=== PATIENT | female | born 1990 | race Caucasian/White ===

== ENCOUNTER 2022-01-27 17:43 | Inpatient (IN) | payer OTHER, SELFPAY ==
--- NOTE | 2022-01-27 17:09 | PCM.HP.OB ---
HPI - General General Date of Admission: 01/27/22 HPI Narrative MER ALANIZ, is a 31 F who presents at 39 weeks with SROM. Irregular contractions. Maternal Data Information Final ANGEL: [birth year] [facility] Medical History Anxiety Congenital stenosis of pulmonary valve Macrosomia atony of uterus with hemorrhage, delivered hemorrhage (spontaneous vaginal delivery) Third degree laceration of perineum, type 3a Home Medications Lexapro 5 mg PO.IVFORM DAILY anxiety 01/27/22 [History Last Taken Unknown] Prenatabs FA 1 tab PO.IVFORM DAILY 01/27/22 [History Last Taken Unknown] Vitamin D3 25 mg PO.IVFORM DAILY supplementation 01/27/22 [History Last Taken Unknown] benzocaine 20 %-menthol 0.5 % topical aerosol (Dermoplast (with menthol)) 1 spray topical TID PRN PRN perineal discomfort #0 grams 01/30/22 [Rx Last Taken Unknown] dibucaine 1 % topical ointment 1 applic topical TID PRN PRN Discomfort #0 grams 01/30/22 [Rx Last Taken Unknown] naproxen 500 mg tablet 500 mg PO Q8H PRN PRN Pain Score 1-3 #0 tabs 01/30/22 [Rx Last Taken Unknown] sennosides 8.6 mg-docusate sodium 50 mg tablet (Stool Softener-Stimulant Laxative) 1 - 2 tab PO DAILY PRN PRN Constipation #0 tabs 01/30/22 [Rx Last Taken Unknown] Allergy/AdvReac Type Severity Reaction Status Date / Time No Known Allergies Allergy Verified 01/27/22 17:40 Family History (Updated 01/27/22 @ 18:41 by Dorcas Tinoco) Grandfather Diabetes Mother Hypertension Raynauds syndrome Brother Kidney disease Surgical History (Updated 01/27/22 @ 18:38 by Dorcas Tinoco) H/O valvuloplasty History of colposcopy Social History current gender identity: female Smoking Status: Never smoker History 1 Elective abortions Hx Para 0 Spontaneous abortions Hx # Term Pregnancies Ectopic pregnancies Hx # Pregnancies Multiple births # of living children 1 Vital Signs Vital Signs Vital Signs: Weight Weight: 245 lb 4 oz Body Mass Index (BMI) 36.2 Physical Exam Narrative NST 130, moderate, accels, Category 1 Labs Labs Labs: Blood Type O POSITIVE Antibody Screen NEGATIVE Hct 29.4 % (37-47) L Hgb 9.5 g/dL (12.0-15.0) L Rhogam given: No Assessment & Plan (1) 39 weeks gestation of : (2) PROM (premature rupture of membranes): PLAN: Plan 1) Admit to Labor and delivery 2) Routine labs 3) ROM plus positive 4) Reviewed option for active vs expectant management. ok for cytotec for cervical ripening then pitocin per policy 5) Continuous EFM 6) Collaborative physician notified.
[2022-01-27 17:14] VITALS: BMI 36.2
[2022-01-27 17:32] VITALS: BP 121/81; PULSE 82; PULSE 85; TEMP 37.3; O2SAT 94; O2SAT 96
[2022-01-27 17:42] LABS: ROM Internal Control Test YES-OK TO RESULT pt. (Internal QC)
[2022-01-27 17:44] LABS: ROM Patient Test POSITIVE (Negative)
[2022-01-27 18:49] LABS: Absolute Lymphocyte Count 1.65 X10^3/uL (0.83-4.51); Absolute Neutrophil Count 7.2 X10^3/uL (2.0-7.7); Basophil# 0.01 X10^3/uL; Basophil% 0.1 % (0-1); Eosinophil# 0.02 X10^3/uL; Eosinophils% 0.2 % (0-5); Hemoglobin 12.7 g/dL (12.0-15.0); Lymphocyte # 1.65 X10^3/ul (0.83-4.51); Lymphocyte % 17.2 % (19-41); Mean Corp Hgb Conc 34.3 g/dL (32-36); Mean Corpuscular Hgb 30.5 pg (27.0-32.0); Mean Corpuscular Volume 88.9 fL (81-99); Mean Platelet Vol. 10.6 fl (6.2-12.0); Monocyte# 0.68 X10^3/uL; Monocyte% 7.1 % (0-10); NRBC Flagged by Analyzer 0 % (0-5); Neutrophil # 7.21 X10^3/uL (2.7-7.7); Neutrophil % 75.1 % (47-70); Platelet Count 189 K/mm3 (150-450); RBC Distribution Width CV 13.2 % (11.6-14.6); RBC Distribution Width SD 42.9 fl (35.1-43.9); Red Blood Count 4.16 M/mm3 (4.2-5.4); White Blood Count 9.6 K/mm3 (4.4-11.0)
[2022-01-27] MEDS: miSOPROStol 25 MCG TABLET PO (20:07)
[2022-01-27 20:08] VITALS: BP 121/70; PULSE 76; TEMP 37.2
[2022-01-27 23:11] VITALS: TEMP 36.9
[2022-01-28] VITALS (80 sets, daily range): BP systolic 89–209; BP diastolic 54–162; PULSE 65–104; TEMP 35.6–37.7; O2SAT 93–99
[2022-01-28] MEDS: miSOPROStol 25 MCG TABLET PO (00:16)
[2022-01-28] MEDS: Acetaminophen 500 MG Tablet PO (00:19)
[2022-01-28] MEDS: Mag Hydrox/Al Hydrox/Simeth 30 ML UDC PO (01:34)
[2022-01-28] MEDS: Lactated Ringers 1,000 ML 50 ML IV (04:31)
[2022-01-28] MEDS: fentaNYL 100 MCG/2 ML Ampul IV (05:00)
[2022-01-28] MEDS: LACTATED RINGERS 500 ML 999 ML IV ×2 (05:33→06:42)
[2022-01-28] MEDS: fentaNYL-bupivacaine (epidural) 100 ML BAG EPIDURAL ×3 (06:36→16:23)
[2022-01-28] MEDS: Oxytocin 30 units/NS 500 ml 30 UNITS/500 ML IV.SOLN IV (06:56)
--- NOTE | 2022-01-28 07:41 | PCM.PN.OB ---
Subjective Subjective Patient seen at bedside. Comfortable with epidural. Objective Data Objective Data Vital Signs: Vital Signs Temp Pulse BP Pulse Ox 97.9 F 83 116/70 96 01/28/22 07:20 01/28/22 07:39 01/28/22 07:39 01/28/22 06:25 Weight: 245 lb 4 oz Body Mass Index (BMI) 36.2 Intake & Output: Intake and Output for Last 24 Hours 01/26/22 01/27/22 01/28/22 23:59 23:59 23:59 Intake Total 500 / 500 Output Total 400 / 400 Balance 100 / 100 Lab / Micro Data Result Diagrams: 01/27/22 18:35 Labs: Laboratory Results - last 24 hr 01/27/22 17:20: Vag Amniotic Fld Detect POSITIVE H 01/27/22 18:35: WBC 9.6, RBC 4.16 L, Hgb 12.7, Hct 37.0, MCV 88.9, MCH 30.5, MCHC 34.3, RDW Std Deviation 42.9, RDW Coeff of Tarun 13.2, Plt Count 189, MPV 10.6, Immature Gran % (Auto) 0.300, Neut % (Auto) 75.1 H, Lymph % (Auto) 17.2 L, [place] % (Auto) 7.1, Eos % (Auto) 0.2, Baso % (Auto) 0.1, Absolute Neuts (auto) 7.2, Absolute Lymphs (auto) 1.65, Nucleated RBC % 0 01/27/22 18:35: Blood Type O POSITIVE, Antibody Screen NEGATIVE Micro: Microbiology 01/27/22 18:35 Nasal Secretion SARS-CoV-2 Antigen (Rapid) - Final ROS Eyes Eyes: Denies blurry vision Cardiovascular Cardiovascular: Reports none; Denies chest pain at rest, chest pain with activity or dizziness Respiratory/Chest Respiratory/Chest: Denies cough or dyspnea Gastrointestinal Gastrointestinal: Reports none and other; Denies diarrhea or vomiting Genitourinary Genitourinary: Denies dysuria Musculoskeletal Musculoskeletal: Reports none Integumentary Integumentary: Reports none; Denies rash Neurologic Neurologic: Denies dizziness, headache(s) or other visual disturbances Psychiatric Psychiatric: Reports none Physical Exam Const alert and no apparent distress General Appearance: cooperative and comfortable Exam Limitations: no limitations HEENT normocephalic Eyes General Eye: normal appearance of both eyes Neck full ROM General: normal visual inspection Chest Chest: symmetrical chest wall rise Resp normal respiratory effort and normal air movement Effort and Inspection: symmetric chest movement Auscultation: clear to auscultation bilaterally Cardio regular rate and regular rhythm GI normal to inspection, nondistended, normoactive bowel sounds Back/Spine normal ROM Extremity full ROM and no calf tenderness General Extremity: normal exam except as noted Skin no rashes or lesions noted Neuro CN's II-XII intact bilaterally Psych mental status grossly normal Assessment & Plan (1) PROM (premature rupture of membranes): (2) 39 weeks gestation of : (3) Congenital stenosis of pulmonary valve: (4) Anxiety: (5) Macrosomia: PLAN: Plan Continue with plan of care for labor Pitocin at 2 mu/min and will continue to be increased per policy Pain control CE /-3 IUPC placed for accuracy with titration of pitocin Cat. 1 tracing- NST reactive Anticipate Dr. Verde updated and is collaborating physician
[2022-01-28] MEDS: Lactated Ringers 1,000 ML 200 ML IV (11:41)
[2022-01-28] MEDS: Ondansetron 4 MG/2 ML Vial IV (11:50)
[2022-01-28] MEDS: Oxytocin 30 units/NS 500 ml 30 UNITS/500 ML IV.SOLN 334 UNITS IV (17:40)
[2022-01-28] MEDS: Methylergonovine 0.2 MG/ML Ampul IM (17:46)
[2022-01-28] MEDS: miSOPROStol 200 MCG Tablet 1000 MCG RC (17:52)
--- NOTE | 2022-01-28 18:20 | OP.PCM_ITS ---
Assessment & Plan (1) (spontaneous vaginal delivery): (2) Congenital stenosis of pulmonary valve: (3) Third degree laceration of perineum, type 3a: (4) atony of uterus with hemorrhage, delivered: Vaginal Delivery Maternal Presentation Maternal Presentation: Spontaneous Rupture of Membranes Maternal Presentation: at 39.0 weeks gestation that presented with spontaneous rupture of membranes. Type of Induction: Pitocin and Cytotec Operative Information Pre-Operative Diagnosis: Term gestation, Spontaneous rupture of membranes Post-Operative Diagnosis: , Live male Surgery / Procedure Performed: Spontaneous Vaginal Delivery Type of Anesthesia: Epidural Drain: Ayala to straight drain Estimated Blood Loss: 900 Time of Delivery: 17:38 Findings Description of Procedure: Patient progressed to complete dilation. Provided bedside support to patient with pushing. Patient pushing well with contractions. Cardiovascular Specialist and nursery RN called to room for delivery. Dr. Verde called for delivery for suspected macrosomia. With minimal maternal effort, infant head delivered followed immediately by anterior shoulder, and remainder of . CAN x1 loose and CAB x 1 loose. Vigorous male placed on maternal abdomen and was attended to by nursing staff. Pitocin IV started for active management of the third stage of labor. Placenta delivered spontaneously and intact. Cord blood collected from 3 vessel cord after delayed cord clamping and cutting. placed immediately skin to skin with patient. Uterus boggy with massage. Dr. Verde completed uterine massage with manual support. Moderate amount of bleeding with expression of clots. Methergine IM x1 dose given. Pitocin IV wide open. Uterus remained boggy. Cytotec 1000 mcg LA placed. Uterus began to firm up and no further clots being expressed. After inspection a third degree laceration was discovered and repaired by Dr. Verde. See additional operative note. EBL 900 cc. APGARS 8/9. Will collect repeat CBC in AM. Patient and bonding well at this time. Presentation: Vertex Amniotic Membrane Rupture Type: Spontaneous Time of Membrane Rupture: 1600 Amniotic Fluid Description: Clear Placental Delivery Description: Spontaneous Placenta Disposition: [facility] Cord Vessel Description: 3 Vessels Cord Entanglement: Around neck x 1, loose and - (cord around body x1 loose) Nuchal Cord Compression: Without compression A Gender: Female (1 minute): 8 (5 minute): 9 Delayed Cord Clamping: Yes Post Vaginal Delivery Medications Given After Delivery: IV Pitocin, IM Methergin and - (Cytotec 1000 mcg LA) Episiotomy Description: None Laceration: 3rd degree Complication Complications: None
--- NOTE | 2022-01-28 18:21 | OP.PCM_ITS ---
Operative Report Date of Procedure: 01/28/22 I was present in the room for the delivery of the infant. Infant delivered by Mackenzie Mesa CNM. I then manually explored the uterus which was boggy. Pitocin was started, manual uterine massage was started, and Methergine was given. The uterus then began to firm. Cytotec was placed rectally. The uterus was firm and bleeding hemostatic. EBL 900 cc. The laceration was examined and a rectal exam was performed, and a third degree perineal laceration was noted. A 3a perineal laceration was noted with the external anal sphincter partially torn. The external anal sphincter was reinforced using 3-0 Vicryl in an end to end fashion, with 4 interrupted sutures. The vaginal mucosa and perineal muscles were then reapproximated using 3-0 Vicryl. A rectal exam was performed at completed and no sutures were noted, with good sphincter tone. Discussed 3rd degree perineal laceration with patient and importance of a good bowel regimen to keep stool soft. Will refer to uro travertine installer and pelvic floor PT.
[2022-01-28] MEDS: Naproxen 500 MG Tablet PO (19:38)
[2022-01-28] MEDS: Benzocaine/Lanolin/Aloe Vera 1 SPRAY EACH TOPICAL (19:38)
--- NOTE | 2022-01-28 20:58 | NURSING ---
Sitz bath given
[2022-01-29] VITALS (7 sets, daily range): BP systolic 105–124; BP diastolic 53–70; PULSE 65–85; RESP 16–18; TEMP 36.1–36.7; O2SAT 95–97
[2022-01-29] MEDS: Acetaminophen 500 MG Tablet 1000 MG PO ×4 (00:31→22:40)
[2022-01-29] MEDS: Naproxen 500 MG Tablet PO ×3 (04:23→20:45)
[2022-01-29 07:03] LABS: Hematocrit 30.8 % (37-47); Hemoglobin 10.2 g/dL (12.0-15.0); Mean Corp Hgb Conc 33.1 g/dL (32-36); Mean Corpuscular Hgb 30.1 pg (27.0-32.0); Mean Corpuscular Volume 90.9 fL (81-99); Mean Platelet Vol. 10.2 fl (6.2-12.0); Platelet Count 150 K/mm3 (150-450); RBC Distribution Width CV 13.6 % (11.6-14.6); RBC Distribution Width SD 44.9 fl (35.1-43.9); Red Blood Count 3.39 M/mm3 (4.2-5.4); White Blood Count 13.3 K/mm3 (4.4-11.0)
[2022-01-29] MEDS: Prenatal Vits Tablet 1 TABLET PO (10:42)
[2022-01-29] MEDS: Senna/Docusate Sodium 1 Tablet PO (10:42)
[2022-01-29] MEDS: Escitalopram Oxalate 10 MG Tablet 5 MG PO (10:42)
[2022-01-29] MEDS: Cholecalciferol (VIT D3) 25 MCG TABLET (1,000 UNITS) PO (10:43)
--- NOTE | 2022-01-29 13:05 | PCM.PN.OB ---
Subjective Subjective Moderate pain in the perineal area. Average lochia. Overall patient states she is feeling well. Objective Data Objective Data Vital Signs: Vital Signs Temp Pulse Resp BP Pulse Ox O2 Del Method 97.3 F L 71 18 114/70 95 Room Air 01/29/22 11:39 01/29/22 11:39 01/29/22 11:39 01/29/22 11:39 01/29/22 11:39 01/29/22 11:39 Oxygen Delivery Method Room Air Weight: 111.244 kg Body Mass Index (BMI) 36.2 Intake & Output: Intake and Output for Last 24 Hours 01/27/22 01/28/22 01/29/22 23:59 23:59 23:59 Intake Total 4512.63 / 4512.63 Output Total 2775 / 2775 1500 / 1500 Balance 1737.63 / 1737.63 -1500 / -1500 Lab / Micro Data Result Diagrams: 01/29/22 06:40 Labs: Laboratory Results - last 24 hr 01/29/22 06:40: WBC 13.3 H, RBC 3.39 L, Hgb 10.2 L, Hct 30.8 L, MCV 90.9, MCH 30.1, MCHC 33.1, RDW Std Deviation 44.9 H, RDW Coeff of Tarun 13.6, Plt Count 150, MPV 10.2 Micro: Microbiology 01/27/22 18:35 Nasal Secretion SARS-CoV-2 Antigen (Rapid) - Final Physical Exam Const alert and no apparent distress Narrative: Fundus firm, below umbilicus. Assessment & Plan (1) Third degree laceration of perineum, type 3a: PLAN: Reviewed perineal care for third-degree laceration. (2) hemorrhage: PLAN: Hemoglobin is stable. Patient's vitals are stable. Recheck CBC in the a.m. PLAN: Plan is breast-feeding and doing well. Likely discharge home patient and tomorrow.
[2022-01-30 02:40] VITALS: BP 112/69; PULSE 70; RESP 18; TEMP 36.6; O2SAT 96
[2022-01-30] MEDS: Naproxen 500 MG Tablet PO ×2 (04:53→13:17)
[2022-01-30] MEDS: Acetaminophen 500 MG Tablet 1000 MG PO (04:53)
[2022-01-30 05:36] LABS: Hematocrit 29.4 % (37-47); Hemoglobin 9.5 g/dL (12.0-15.0); Mean Corp Hgb Conc 32.3 g/dL (32-36); Mean Corpuscular Hgb 30.1 pg (27.0-32.0); Platelet Count 163 K/mm3 (150-450); RBC Distribution Width CV 13.9 % (11.6-14.6); RBC Distribution Width SD 47.1 fl (35.1-43.9); Red Blood Count 3.16 M/mm3 (4.2-5.4); White Blood Count 9.9 K/mm3 (4.4-11.0)
--- NOTE | 2022-01-30 07:35 | NURSING ---
report given to Surendra Hopkins RN who is assuming care of pt at this time
--- NOTE | 2022-01-30 07:44 | NURSING ---
pt reports using sitz bath after RN educated pt on use prior to 0600 round
[2022-01-30 08:09] VITALS: BP 124/78; PULSE 76; RESP 16; TEMP 36.2; O2SAT 97
[2022-01-30] MEDS: Benzocaine/Lanolin/Aloe Vera 1 SPRAY EACH TOPICAL (08:14)
--- NOTE | 2022-01-30 08:18 | PN.OBGYN_ITS ---
Subjective Subjective Patient seen at bedside. Sleeping sound. Ambulating and voiding without difficulty. Had bowel movement yesterday. Pain controlled at this time. Using sitz bath for perineum. with support. Denies headache, dizziness, SOB or CP. Desires discharge home later today. Objective Data Objective Data Vital Signs: Vital Signs Temp Pulse Resp BP Pulse Ox O2 Del Method 97.1 F L 76 16 124/78 H 97 Room Air 01/30/22 08:09 01/30/22 08:09 01/30/22 08:09 01/30/22 08:09 01/30/22 08:09 01/30/22 08:09 Oxygen Delivery Method Room Air Weight: 245 lb 4 oz Body Mass Index (BMI) 36.2 Intake & Output: Intake and Output for Last 24 Hours 01/28/22 01/29/22 01/30/22 23:59 23:59 23:59 Intake Total 4512.63 / 4512.63 Output Total 2775 / 2775 1500 / 1500 Balance 1737.63 / 1737.63 -1500 / -1500 Lab / Micro Data Result Diagrams: 01/30/22 05:15 Labs: Laboratory Results - last 24 hr 01/30/22 05:15: WBC 9.9, RBC 3.16 L, Hgb 9.5 L, Hct 29.4 L, MCV 93.0, MCH 30.1, MCHC 32.3, RDW Std Deviation 47.1 H, RDW Coeff of Tarun 13.9, Plt Count 163, MPV 10.0 Micro: Microbiology 01/27/22 18:35 Nasal Secretion SARS-CoV-2 Antigen (Rapid) - Final ROS Eyes Eyes: Denies blurry vision, change in vision or spots in vision ENT HEENT: Denies dizziness or headache(s) Cardiovascular Cardiovascular: Denies abdominal pain, chest pain or dyspnea Respiratory/Chest Respiratory/Chest: Denies cough, dyspnea, shortness of breath at rest or shortness of breath with exertion Gastrointestinal Gastrointestinal: Denies abdominal pain, diarrhea or vomiting Genitourinary Genitourinary: Denies change in urinary stream, difficulty urinating or dysuria Musculoskeletal Musculoskeletal: Reports none Integumentary Integumentary: Denies rash Neurologic Neurologic: Denies dizziness, headache(s), memory loss or weakness Physical Exam Const alert and no apparent distress General Appearance: cooperative and comfortable Exam Limitations: no limitations HEENT normocephalic Eyes General Eye: normal appearance of both eyes Neck full ROM General: normal visual inspection Chest Chest: symmetrical chest wall rise Resp normal respiratory effort and normal air movement Effort and Inspection: symmetric chest movement Auscultation: clear to auscultation bilaterally Cardio regular rate and regular rhythm GI normal to inspection, nondistended, normoactive bowel sounds Back/Spine normal ROM Extremity full ROM and no calf tenderness General Extremity: normal exam except as noted Skin no rashes or lesions noted Neuro CN's II-XII intact bilaterally Psych mental status grossly normal Assessment & Plan (1) atony of uterus with hemorrhage, delivered: (2) Third degree laceration of perineum, type 3a: (3) (spontaneous vaginal delivery): PLAN: Plan PPD 2 Oral Iron supplementation Sitz bath daily Pain control support D/C home with follow up in office- referral placed to pelvic floor therapy [facility] f or 3rd degree laceration
--- NOTE | 2022-01-30 08:23 | DCINST_ITS ---
Discharge Instructions Diet Discharge Diet: No restrictions Activity Discharge Activity: Return to Normal Activity, May Shower and May Take a Tub Bath May resume sexual activity in: 6-8 weeks Weight Bearing Status: Weight bearing as tolerated Dressing / Incision Call your doctor if you observe: Fever of 101 or Higher, Inability to urinate, Inability to have a bowel movement, Using more than 1 pad per hour, Shortness of breath, Dizziness, Chest pain, Calf discomfort and Uncontrolled pain Cleanse incision/area with: - (Sitz bath daily with warm water) Follow Up Care Please Follow Up With: Malina Verde DO When: 2 weeks in office Test Results: Test results from this visit will be discussed in further detail at your follow- up appointment, if applicable. Discharge Plan Admission Admit Date/Time: 01/27/22 17:43 Primary Reason for Your Visit: Labor and delivery Attending Provider: Mackenzie Mesa Primary Care Provider: Care Physician,Radah Primary Discharge Orders/Prescriptions Prescriptions: New Dermoplast (with menthol) 20-0.5 % Aerosol 1 spray topical TID PRN PRN (Reason: perineal discomfort) Qty: 0 0RF Protocol: *Topical Application Instructions APPLICATION INSTRUCTIONS: 1 spray 3 times a day as needed for perineal discomfort sennosides-docusate sodium [Stool Softener-Stimulant Laxat] 8.6-50 mg Tablet 1 - 2 tab PO DAILY PRN PRN (Reason: Constipation ) Qty: 0 0RF dibucaine 1 % Ointment 1 applic topical TID PRN PRN (Reason: Discomfort) Qty: 0 0RF Protocol: *Topical Application Instructions APPLICATION INSTRUCTIONS: To perineum for discomfort naproxen 500 mg Tablet 500 mg PO Q8H PRN PRN (Reason: Pain Score 1-3) Qty: 0 0RF Continued Lexapro 5 mg PO.IVFORM DAILY Prenatabs FA 1 tab PO.IVFORM DAILY Vitamin D3 25 mg PO.IVFORM DAILY Referrals / Follow Up: Care Physician,No Primary [Primary Care Provider] - Disposition Disposition (needs filled in before D/C Order can be placed): Home, Self Care
[2022-01-30] MEDS: Escitalopram Oxalate 10 MG Tablet 5 MG PO (09:35)
[2022-01-30] MEDS: Cholecalciferol (VIT D3) 25 MCG TABLET (1,000 UNITS) PO (09:35)
[2022-01-30] MEDS: Prenatal Vits Tablet 1 TABLET PO (09:35)
[2022-01-30 13:00] VITALS: BP 121/71; PULSE 81; RESP 16; TEMP 36.6; O2SAT 95
[2022-01-30] MEDS: Senna/Docusate Sodium 1 Tablet PO (13:17)
== END 2022-01-30 14:20 | disposition home or self-care (01) | DRG 768 ==
LOC: WPOUT 17:46 → WP 17:46
PROVIDERS: Obstetrics & Gynecology; Admitting Provider Advanced Practice Midwife; Visit Provider Advanced Practice Midwife
DX: O42.92 Full-term premature rupture of membranes, unspecified as to length of time between rupture and onset of labor (principal); Z37.0 Single live birth; O72.1 Other immediate postpartum hemorrhage; O70.21 Third degree perineal laceration during delivery, IIIa; F41.9 Anxiety disorder, unspecified; Z3A.39 39 weeks gestation of pregnancy; O99.344 Other mental disorders complicating childbirth; Z87.74 Personal history of (corrected) congenital malformations of heart and circulatory system; Z79.899 Other long term (current) drug therapy; O69.81X0 Labor and delivery complicated by cord around neck, without compression, not applicable or unspecified
CPT/HCPCS: 59025; 59050; 84112; 85025; 85027; 86850; 86900; 86901; 87426; 99218; J7120; G0378; J2405

== ENCOUNTER 2023-11-16 06:21 | Inpatient (IN) | payer OTHER, SELFPAY ==
[2023-11-16] VITALS (83 sets, daily range): BP systolic 101–134; BP diastolic 57–85; PULSE 59–93; RESP 16; TEMP 36.2–36.9; O2SAT 84–100; BMI 34.4
[2023-11-16 06:14] LABS: ROM Internal Control Test YES-OK TO RESULT pt. (Internal QC); Record Kit Lot#, ROM+ K1866
[2023-11-16 06:17] LABS: ROM Patient Test POSITIVE (Negative)
[2023-11-16] MEDS: Lactated Ringers 1,000 ML 999 ML IV (07:00)
[2023-11-16 07:18] LABS: Absolute Lymphocyte Count 1.88 X10^3/uL (0.83-4.51); Absolute Neutrophil Count 5.7 X10^3/uL (2.0-7.7); Basophil# 0.01 X10^3/uL; Basophil% 0.1 % (0-1); Eosinophil# 0.03 X10^3/uL; Eosinophils% 0.4 % (0-5); Hematocrit 34.3 % (37-47); Hemoglobin 11.1 g/dL (12.0-15.0); Lymphocyte # 1.88 X10^3/ul (0.83-4.51); Lymphocyte % 23.3 % (19-41); Mean Corp Hgb Conc 32.4 g/dL (32-36); Mean Corpuscular Hgb 27.8 pg (27.0-32.0); Mean Corpuscular Volume 85.8 fL (81-99); Mean Platelet Vol. 10.1 fl (6.2-12.0); Monocyte# 0.45 X10^3/uL; Monocyte% 5.6 % (0-10); NRBC Flagged by Analyzer 0 % (0-5); Neutrophil # 5.68 X10^3/uL (2.7-7.7); Neutrophil % 70.2 % (47-70); Platelet Count 197 K/mm3 (150-450); RBC Distribution Width CV 13.7 % (11.6-14.6); RBC Distribution Width SD 42.7 fl (35.1-43.9); White Blood Count 8.1 K/mm3 (4.4-11.0)
[2023-11-16] MEDS: Mag Hydrox/Al Hydrox/Simeth 30 ML UDC PO (07:26)
[2023-11-16] MEDS: fentaNYL 100 MCG/2 ML Ampul IV (07:51)
[2023-11-16] MEDS: 0.9% Saline Lock 10 ML Syringe IV ×2 (07:52→14:12)
[2023-11-16] MEDS: Lactated Ringers 1,000 ML 50 ML IV (08:11)
[2023-11-16] MEDS: LACTATED RINGERS 500 ML 999 ML IV ×2 (08:33→14:29)
[2023-11-16] MEDS: fentaNYL-bupivacaine (epidural) 100 ML BAG EPIDURAL ×2 (08:52→13:30)
[2023-11-16] MEDS: Oxytocin 15 Units/NS 250ml 15 UNITS/250 ML IV.SOLN 2 UNITS IV (09:07)
[2023-11-16 09:10] LABS: Syphilis Antibodies Non-reactive
--- NOTE | 2023-11-16 09:24 | PCM.HP.OB ---
HPI - General General Date of Admission: 11/16/23 HPI Narrative MER ALANIZ, is a 33 F who presents to triage with SROM this morning. Patient reports clear fluid and has started feeling contractions. Desires epidural. Maternal Data Information ANGEL Calculator Estimated Delivery Date Method Current WG Current Estimate 11/22/23 Manual 39w 1d Gestational age: 39.1 PFSH PFSH Medical History (Updated 11/16/23 @ 09:35 by Mackenzie Mesa CNM) atony of uterus with hemorrhage, delivered Anxiety Congenital stenosis of pulmonary valve Macrosomia depression Third degree laceration of perineum, type 3a hemorrhage (spontaneous vaginal delivery) Home Medications ?Medication ?Instructions ?Recorded ?Last Taken ?Type Lexapro 5 mg PO.IVFORM DAILY anxiety 01/27/22 11/15/23 23:00 History Prenatabs FA 1 tab PO.IVFORM DAILY 01/27/22 11/15/23 23:00 History Vitamin D3 25 mg PO.IVFORM DAILY 01/27/22 11/15/23 23:00 History supplementation benzocaine 20 %-menthol 0.5 % 1 spray topical TID PRN PRN 01/30/22 Unknown Rx topical aerosol (Dermoplast (with perineal discomfort #0 grams menthol)) dibucaine 1 % topical ointment 1 applic topical TID PRN PRN 01/30/22 Unknown Rx Discomfort #0 grams naproxen 500 mg tablet 500 mg PO Q8H PRN PRN Pain Score 01/30/22 Unknown Rx 1-3 #0 tabs sennosides 8.6 mg-docusate sodium 1 - 2 tab PO DAILY PRN PRN 01/30/22 Unknown Rx 50 mg tablet (Stool Constipation #0 tabs Softener-Stimulant Laxative) magnesium 200 mg tablet 400 mg PO DAILY 11/16/23 Unknown History Allergy/AdvReac Type Severity Reaction Status Date / Time No Known Allergies Allergy Verified 11/16/23 05:28 Family History (Updated 01/27/22 @ 18:41 by Dorcas Tinoco) Grandfather Diabetes Mother Hypertension Raynauds syndrome Brother Kidney disease Surgical History (Updated 11/16/23 @ 09:35 by Mackenzie Mesa CNM) History of colposcopy H/O valvuloplasty Social History Smoking Status: Never smoker History 1 Elective abortions Hx Para 1 Spontaneous abortions Hx # Term Pregnancies Ectopic pregnancies Hx # Pregnancies Multiple births # of living children 1 ROS Eyes Eyes: Denies blurry vision, change in vision or spots in vision ENT HEENT: Denies dizziness or headache(s) Cardiovascular Cardiovascular: Denies abdominal pain, chest pain or dyspnea Respiratory/Chest Respiratory/Chest: Denies cough, dyspnea, shortness of breath at rest or shortness of breath with exertion Gastrointestinal Gastrointestinal: Denies abdominal pain, diarrhea or vomiting Genitourinary Genitourinary: Denies change in urinary stream, difficulty urinating or dysuria Musculoskeletal Musculoskeletal: Reports none Integumentary Integumentary: Denies rash Neurologic Neurologic: Denies dizziness, headache(s), memory loss or weakness Vital Signs Vital Signs Vital Signs: 11/16/23 06:12 11/16/23 06:12 11/16/23 06:12 Temperature Temperature Source Pulse Rate 64 Respiratory Rate Blood Pressure 120/67 BP Systolic 120 BP Diastolic 67 Pulse Ox 96 11/16/23 06:14 11/16/23 06:14 11/16/23 06:14 Temperature 97.6 F L Temperature Source Temporal Pulse Rate Respiratory Rate 16 Blood Pressure BP Systolic BP Diastolic Pulse Ox 11/16/23 07:23 11/16/23 07:23 11/16/23 07:23 Temperature Temperature Source Pulse Rate 63 Respiratory Rate Blood Pressure 124/78 H BP Systolic 124 BP Diastolic 78 Pulse Ox 95 11/16/23 07:23 11/16/23 07:23 11/16/23 07:23 Temperature 98.4 F Temperature Source Temporal Pulse Rate Respiratory Rate 16 Blood Pressure BP Systolic BP Diastolic Pulse Ox 11/16/23 08:33 11/16/23 08:33 11/16/23 08:38 Temperature Temperature Source Pulse Rate 78 76 Respiratory Rate Blood Pressure BP Systolic BP Diastolic Pulse Ox 98 11/16/23 08:38 11/16/23 08:43 11/16/23 08:43 Temperature Temperature Source Pulse Rate 75 Respiratory Rate Blood Pressure 120/76 BP Systolic 120 BP Diastolic 76 Pulse Ox 98 11/16/23 08:43 11/16/23 08:43 11/16/23 08:43 Temperature Temperature Source Pulse Rate 73 Respiratory Rate 16 Blood Pressure BP Systolic BP Diastolic Pulse Ox 98 11/16/23 08:48 11/16/23 08:48 11/16/23 08:48 Temperature Temperature Source Pulse Rate 93 Respiratory Rate Blood Pressure 115/69 BP Systolic 115 BP Diastolic 69 Pulse Ox 97 11/16/23 08:49 11/16/23 08:52 11/16/23 08:52 Temperature Temperature Source Pulse Rate 72 Respiratory Rate 16 Blood Pressure 134/72 H BP Systolic 134 BP Diastolic 72 Pulse Ox 11/16/23 08:53 11/16/23 08:53 11/16/23 08:55 Temperature Temperature Source Pulse Rate 80 79 Respiratory Rate Blood Pressure BP Systolic BP Diastolic Pulse Ox 96 11/16/23 08:55 11/16/23 08:55 11/16/23 08:57 Temperature Temperature Source Pulse Rate Respiratory Rate 16 Blood Pressure 128/80 H BP Systolic 128 BP Diastolic 80 Pulse Ox 91 11/16/23 08:57 11/16/23 08:58 11/16/23 08:58 Temperature Temperature Source Pulse Rate 85 74 Respiratory Rate Blood Pressure BP Systolic BP Diastolic Pulse Ox 96 11/16/23 08:58 11/16/23 09:02 11/16/23 09:02 Temperature Temperature Source Pulse Rate 73 Respiratory Rate 16 Blood Pressure 120/75 BP Systolic 120 BP Diastolic 75 Pulse Ox 11/16/23 09:03 11/16/23 09:03 11/16/23 09:03 Temperature Temperature Source Pulse Rate 71 Respiratory Rate 16 Blood Pressure BP Systolic BP Diastolic Pulse Ox 96 11/16/23 09:07 11/16/23 09:07 11/16/23 09:08 Temperature Temperature Source Pulse Rate 70 69 Respiratory Rate Blood Pressure 118/66 BP Systolic 118 BP Diastolic 66 Pulse Ox 11/16/23 09:08 11/16/23 09:10 11/16/23 09:12 Temperature Temperature Source Pulse Rate Respiratory Rate 16 Blood Pressure 119/71 BP Systolic 119 BP Diastolic 71 Pulse Ox 96 11/16/23 09:12 11/16/23 09:13 11/16/23 09:13 Temperature Temperature Source Pulse Rate 72 71 Respiratory Rate Blood Pressure BP Systolic BP Diastolic Pulse Ox 97 11/16/23 09:16 11/16/23 09:17 11/16/23 09:17 Temperature Temperature Source Pulse Rate 66 Respiratory Rate 16 Blood Pressure 121/70 H BP Systolic 121 BP Diastolic 70 Pulse Ox 11/16/23 09:18 11/16/23 09:18 11/16/23 09:23 Temperature Temperature Source Pulse Rate 70 Respiratory Rate Blood Pressure 118/71 BP Systolic 118 BP Diastolic 71 Pulse Ox 97 11/16/23 09:23 Temperature Temperature Source Pulse Rate 63 Respiratory Rate Blood Pressure BP Systolic BP Diastolic Pulse Ox Weight Weight: 233 lb Body Mass Index (BMI) 34.4 Physical Exam Const alert and no apparent distress General Appearance: cooperative and comfortable Exam Limitations: no limitations HEENT normocephalic Eyes General Eye: normal appearance of both eyes Neck full ROM General: normal visual inspection Chest Chest: symmetrical chest wall rise Resp normal respiratory effort and normal air movement Effort and Inspection: symmetric chest movement Auscultation: clear to auscultation bilaterally Cardio regular rate and regular rhythm GI normal to inspection, nondistended, normoactive bowel sounds Back/Spine normal ROM Extremity full ROM and no calf tenderness General Extremity: normal exam except as noted Skin no rashes or lesions noted Neuro CN's II-XII intact bilaterally Psych mental status grossly normal Labs Labs Labs: Blood Type O POSITIVE Antibody Screen NEGATIVE Hct 34.3 % (37-47) L Hgb 11.1 g/dL (12.0-15.0) L Syphilis Total Ab Non-reactive Rhogam given: No GBS negative Assessment & Plan (1) Spontaneous rupture of amniotic membranes: (2) Macrosomia: COMMENT: EFW 92% at 36.6 weeks gestation (3) History of third degree perineal laceration: (4) History of hemorrhage: (5) 39 weeks gestation of : (6) Congenital stenosis of pulmonary valve: PLAN: Plan ROM plus positive CE 1.5 cm Admit to labor and delivery Routine labs Start IV fluids and run per orders Start Pitocin 2 mu/min and increase per policy GBS negative Patient requesting physician for management and delivery due to history of third degree and LGA Dr. Clifford notified of admission, patient history and plan. She will be assuming management of patient.
[2023-11-16] MEDS: Lactated Ringers 1,000 ML 200 ML IV (10:20)
[2023-11-16] MEDS: Ondansetron 4 MG/2 ML Vial IV (14:09)
--- NOTE | 2023-11-16 15:33 | EX.PCM.OBRPT ---
Maternal Data Information ANGEL Calculator Estimated Delivery Date Method Current WG Current Estimate 11/22/23 Manual 39w 1d Vaginal Delivery Maternal Presentation Maternal Presentation: Active Labor and Spontaneous Rupture of Membranes Operative Information Date of Procedure: 11/16/23 Pre-Operative Diagnosis: 39 weeks, LGA, Previous 3rd degree maternal laceration Post-Operative Diagnosis: same, live male Surgery / Procedure Performed: Spontaneous Vaginal Delivery Type of Anesthesia: Epidural Drain: Ayala to straight drain Estimated Blood Loss: 100 Time of Delivery: 15:23 Findings Description of Procedure: Patient progressed to fully dilated upon my arrival good maternal pushing efforts delivered the infant's head. Less than 30 second delay for the anterior shoulder but at this time due to the anticipation of an LGA the legs were placed in Hans maneuver and with gentle downward traction the anterior shoulder was delivered without complication followed by the rest the infant's body without delay. The infant was then placed on the mother's chest where the mouth and nose were suctioned and it was attended by the nursery staff. The cord was clamped and cut due to meconium. And it was taken to be evaluated by the nursery staff and housing manager. The infant was vigorous at time of delivery. At this time Cord gases and cord blood were obtained. Pitocin was started and placenta was delivered intact without complication. Vagina and perineum were evaluated excellent hemostasis no lacerations. Fundus was firm. Presentation: Vertex Amniotic Membrane Rupture Type: Spontaneous Amniotic Fluid Description: Lightly stained meconium Placental Delivery Description: Expressed Placenta Disposition: [facility] Specimen(s) Removed: placenta Cord Vessel Description: 3 Vessels Cord Entanglement: None Cord Gases: ABG and VBG Infant A Gender: Male (1 minute): 8 (5 minute): 9 Delayed Cord Clamping: No Post Vaginal Delivery Medications Given After Delivery: IV Pitocin Episiotomy Description: None Laceration: None Complication Complications: None
[2023-11-16] MEDS: Oxytocin 15 Units/NS 250ml 15 UNITS/250 ML IV.SOLN 83 UNITS IV (16:05)
[2023-11-16] MEDS: Ibuprofen 600 MG Tablet PO (18:52)
[2023-11-16] MEDS: Acetaminophen 500 MG Tablet 1000 MG PO (20:14)
[2023-11-17] VITALS (11 sets, daily range): BP systolic 106–121; BP diastolic 69–77; PULSE 60–73; RESP 16–18; TEMP 36.3–36.9; O2SAT 95–99
[2023-11-17] MEDS: Ibuprofen 600 MG Tablet PO ×3 (03:51→15:52)
--- NOTE | 2023-11-17 07:12 | PCM.PN.CNM ---
Subjective Subjective Patient seen at bedside. Feeling tired. Ambuating and voiding without difficulty. with minimal support. Lochia is decreasing. Desires discharge home tomorrow. Objective Data Objective Data Vital Signs: Vital Signs Temp Pulse Resp BP Pulse Ox O2 Del Method 97.5 F L 72 18 106/72 98 Room Air 11/17/23 04:10 11/17/23 04:10 11/17/23 04:10 11/17/23 04:10 11/17/23 04:10 11/17/23 04:10 Oxygen Delivery Method Room Air Weight: 233 lb Body Mass Index (BMI) 34.4 Intake & Output: Intake and Output for Last 24 Hours 11/15/23 11/16/23 11/17/23 23:59 23:59 23:59 Intake Total 4500.00 / 4500.00 Output Total 1900 / 1900 200 / 200 Balance 2600.00 / 2600.00 -200 / -200 Lab / Micro Data 11/16/23 07:00 Labs: Laboratory Results - last 24 hr 11/16/23 07:00: WBC 8.1, RBC 4.00 L, Hgb 11.1 L, Hct 34.3 L, MCV 85.8, MCH 27.8, MCHC 32.4, RDW Std Deviation 42.7, RDW Coeff of Tarun 13.7, Plt Count 197, MPV 10.1, Immature Gran % (Auto) 0.400, Neut % (Auto) 70.2 H, Lymph % (Auto) 23.3, [place]os % (Auto) 5.6, Eos % (Auto) 0.4, Baso % (Auto) 0.1, Absolute Neuts (auto) 5.7, Absolute Lymphs (auto) 1.88, Nucleated RBC % 0, Syphilis Total Ab Non-reactive, Blood Type O POSITIVE, Antibody Screen NEGATIVE ROS Eyes Eyes: Denies blurry vision, change in vision or spots in vision ENT HEENT: Denies dizziness or headache(s) Cardiovascular Cardiovascular: Denies abdominal pain, chest pain or dyspnea Respiratory/Chest Respiratory/Chest: Denies cough, dyspnea, shortness of breath at rest or shortness of breath with exertion Gastrointestinal Gastrointestinal: Denies abdominal pain, diarrhea or vomiting Genitourinary Genitourinary: Denies change in urinary stream, difficulty urinating or dysuria Musculoskeletal Musculoskeletal: Reports none Integumentary Integumentary: Denies rash Neurologic Neurologic: Denies dizziness, headache(s), memory loss or weakness Physical Exam Const alert and no apparent distress General Appearance: cooperative and comfortable Exam Limitations: no limitations HEENT normocephalic Eyes General Eye: normal appearance of both eyes Neck full ROM General: normal visual inspection Chest Chest: symmetrical chest wall rise Resp normal respiratory effort and normal air movement Effort and Inspection: symmetric chest movement Auscultation: clear to auscultation bilaterally Cardio regular rate and regular rhythm GI normal to inspection, nondistended, normoactive bowel sounds Back/Spine normal ROM Extremity full ROM and no calf tenderness General Extremity: normal exam except as noted Skin no rashes or lesions noted Neuro CN's II-XII intact bilaterally Psych mental status grossly normal Assessment & Plan (1) Care and examination of lactating mother: (2) H/O valvuloplasty: (3) Anxiety: (4) Congenital stenosis of pulmonary valve: PLAN: Plan PPD 1 Intact perineum Lochia decreasing with minimal support Desires discharge home tomorrow
[2023-11-17] MEDS: Senna/Docusate Sodium 1 Tablet PO (09:02)
[2023-11-17] MEDS: Escitalopram Oxalate 10 MG Tablet 5 MG PO (09:04)
[2023-11-17] MEDS: Acetaminophen 500 MG Tablet 1000 MG PO (12:56)
[2023-11-18] MEDS: Ibuprofen 600 MG Tablet PO (00:46)
[2023-11-18 02:42] VITALS: BP 113/70; PULSE 68; RESP 16; TEMP 36.7
[2023-11-18 07:44] VITALS: BP 114/79; PULSE 68
[2023-11-18 07:45] VITALS: BP 114/79; PULSE 68; RESP 16; TEMP 36.7
--- NOTE | 2023-11-18 09:00 | PCM.PN.OB ---
Subjective Subjective Denies complaints Objective Data Objective Data Vital Signs: Vital Signs Temp Pulse Resp BP Pulse Ox O2 Del Method 98.1 F 68 16 114/79 95 Room Air 11/18/23 07:45 11/18/23 07:45 11/18/23 07:45 11/18/23 07:45 11/17/23 21:02 11/18/23 02:42 Oxygen Delivery Method Room Air Weight: 233 lb Body Mass Index (BMI) 34.4 Intake & Output: Intake and Output for Last 24 Hours 11/16/23 11/17/23 11/18/23 23:59 23:59 23:59 Intake Total 4500.00 / 4500.00 Output Total 1900 / 1900 200 / 200 Balance 2600.00 / 2600.00 -200 / -200 Lab / Micro Data 11/16/23 07:00 Physical Exam Const alert, oriented x3 and no apparent distress HEENT normocephalic GI soft to palpation, non-tender and non-distended GI Narrative: fundus firm, mid & below umbilicus Extremity normal to inspection and no calf tenderness Assessment & Plan (1) (spontaneous vaginal delivery): COMMENT: PPD#2 PLAN: Plan D/c home
--- NOTE | 2023-11-18 09:03 | PCM.DC.SUM ---
Providers Date of Admission: 11/16/23 Primary Care Physician: Radha Primary Care Phys Reason For Visit: VAG DELIVERY Diagnosis Discharge Diagnosis (1) (spontaneous vaginal delivery): Status: Acute Code(s): O80 - Encounter for full-term uncomplicated delivery Plan D/c home Medications at Discharge Home Medications Lexapro 5 mg PO.IVFORM DAILY anxiety 01/27/22 Prenatabs FA 1 tab PO.IVFORM DAILY 01/27/22 Vitamin D3 25 mg PO.IVFORM DAILY supplementation 01/27/22 benzocaine 20 %-menthol 0.5 % topical aerosol (Dermoplast (with menthol)) 1 spray topical TID PRN PRN perineal discomfort #0 grams 01/30/22 dibucaine 1 % topical ointment 1 applic topical TID PRN PRN Discomfort #0 grams 01/30/22 naproxen 500 mg tablet 500 mg PO Q8H PRN PRN Pain Score 1-3 #0 tabs 01/30/22 sennosides 8.6 mg-docusate sodium 50 mg tablet (Stool Softener-Stimulant Laxative) 1 - 2 tab PO DAILY PRN PRN Constipation #0 tabs 01/30/22 magnesium 200 mg tablet 400 mg PO DAILY 11/16/23 acetaminophen 500 mg tablet 1,000 mg (2 x 500 mg) PO Q6H PRN PRN Pain 1-10 Or Fever #0 tabs 11/18/23 Hospital Course Operations None Procedures None Summary of Care Provided Minutes Spent on Discharge: 15 Weight / BMI Weight Weight: 233 lb Body Mass Index (BMI) 34.4 ABG / Lab / Microbiology Data 11/16/23 07:00 D/C Instructions Discharge Diet: No restrictions May resume sexual activity in: 6 weeks Weight Bearing Status: Weight bearing as tolerated Call your doctor if you observe: Fever of 101 or Higher, Coldness, Increased Pain, Change in Color, Inability to urinate, Inability to have a bowel movement, Using more than 1 pad per hour, Shortness of breath, Dizziness, Fainting spells, Chest pain, Increased palpitations (irregular heartbeat), Calf discomfort and Uncontrolled pain Please Follow Up With: Charlie Durham MD When: Follow up in 2 and 6 weeks for visits. Meaningful Use Info Meaningful Use Meaningful Use Diagnoses (Choose all that apply): None applicable Ischemic Stroke Statin Dosing Therapy Reference: STATIN DOSE THERAPY REFERENCE: * Patients > 75 years receive moderate or high dose statin therapy. * Patients 75 years or YOUNGER should receive HIGH intensity statin dose unless contraindicated. You will be required to document reason for non-treatment if statin daily dose does not meet guidelines. HIGH DOSE STATIN THERAPY DAILY Atorvastatin > than or = to 40 mg Rosuvastatin > than or = to 20 mg Amlodipine + Atorvastatin > than or = to 2.5/40 mg Ezetimibe + Simvastatin 10/80 mg Simvastatin 80mg Discharge Plan Admission Admit Date/Time: 11/16/23 06:21 Attending Provider: Mackenzie Mesa Primary Care Provider: Care Physician,Radha Primary Discharge Orders/Prescriptions Prescriptions: New acetaminophen 500 mg Tablet 1,000 mg PO Q6H PRN PRN (Reason: Pain 1-10 Or Fever) Qty: 0 0RF Continued Lexapro 5 mg PO.IVFORM DAILY Prenatabs FA 1 tab PO.IVFORM DAILY Vitamin D3 25 mg PO.IVFORM DAILY Dermoplast (with menthol) 20-0.5 % Aerosol 1 spray topical TID PRN PRN (Reason: perineal discomfort) Qty: 0 0RF Protocol: *Topical Application Instructions APPLICATION INSTRUCTIONS: 1 spray 3 times a day as needed for perineal discomfort sennosides-docusate sodium [Stool Softener-Stimulant Laxat] 8.6-50 mg Tablet 1 - 2 tab PO DAILY PRN PRN (Reason: Constipation ) Qty: 0 0RF dibucaine 1 % Ointment 1 applic topical TID PRN PRN (Reason: Discomfort) Qty: 0 0RF Protocol: *Topical Application Instructions APPLICATION INSTRUCTIONS: To perineum for discomfort naproxen 500 mg Tablet 500 mg PO Q8H PRN PRN (Reason: Pain Score 1-3) Qty: 0 0RF magnesium 200 mg tablet 400 mg PO DAILY Referrals / Follow Up: Care Physician,No Primary [Primary Care Provider] - Disposition Disposition (needs filled in before D/C Order can be placed): Home, Self Care
[2023-11-18] MEDS: Escitalopram Oxalate 10 MG Tablet 5 MG PO (09:32)
--- NOTE | 2023-11-19 15:35 | CASEMGMT ---
Social Work Assessment Labor and Delivery Unit Patient Address: [address] [place] [address] Phone number: [phone] Date of Referral: 11/17/23 Time of Referral:? 2012 Referred By: Summer Clifford Date of Intervention: ??11/18/23 Time of Intervention:? 1000 Reason for Referral:? mental health Sw completed chart review and acknowledges social work consult entered due to maternal mental health. Sw presented to bedside and introduced self to mother of baby (MOB- Laquita) and father of baby (FOB- Norberto). Another family member was present, whom was introduced to sw as maternal grandma. CHUCK stated that it was okay to complete assessment with her present. History obtained from: medical records, MOB and FOB Household composition: CHUCK states that currently it is herself, FOB and their 1 year old son who live in the home, along with baby when ready for discharge. Parents deny any issues or concerns with their current housing. Patient's parent/guardian status:? ?CHUCK states that she and FOCharisma have been together for 11 years. No concerns reported of domestic violence or intimate partner violence. Medical History: ?CHUCK is 33 year old female who is 2, para 1- now 2 following labor and delivery of . CHUCK received routine care during with [facility]. CHUCK presented to hospital and delivered baby via spontaneous vaginal delivery on 11/16/23 at 39 weeks gestation. Baby boy, named Modesto Cowan, was born weighing 9lb 6oz with apgars of 9 and 9 at one and five minutes of life, respectfully. CHUCK states that she is breast feeding and that is going well. Baby will be followed by Dr. Villar for pediatrics. Educational Status:? Both parents have advanced degrees. NO issues with reading, learning or comprehension. Financial Status: Both parents are gainfully employed. 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 Supplies:?? Parents have obtained all necessary baby supplies, including: car seat, safe sleep space, clothes, diapers and wipes. Childcare/Caregiver(s):? MOB will be the primary caregiver to baby along with FOB. MOB states that when both parents are working they have an in- home nanny, or childcare provider who will assist. MOB works from home, but will still need help. Transportation:?? Both parents have their drivers license and reliable means of transportation. No barriers. Programs/Agencies Involved: ??Parents are not connected to any community resources that help them financially as they are over income. ? Children Services/Legal Issues:??? no history of involvement, no issues or concerns warranting referral to be made at this time. Behavioral Health Issues: ??Mental Health History:?FOB denies mental health history. MOB states that she has been diagnosed with anxiety and did experience depression. MOB states that she was overwhelmed following the delivery of her last son, and emotional. MOB states that she feels better prepared about what to expect this time. MOB is prescribed Lexapro to help manage her mental health symptoms. ?? Substance Use History: Parents deny substance use?? Family History:??No family history of substance use or significant mental health diagnoses. ??? Drug Screens: ??no drug screens observed in chart review. Family/Social Stressors:? Parents deny any issues or concerns at this time. MOB states that she is really missing her older son, he has not been in to see them. Support Systems: Parents state that they are each others biggest supports along with both sets of grandparents. Depression/Shaken Baby/Safe Sleeping:? Lori educated parents on signs and symptoms of baby blues and depression to be on the lookout for. Parents express understanding. FOB states that if MOB were to struggle he would be able to recognize that and would know how to help and support her. Lori educated parents on shaken baby prevention and ABCs of safe sleep. Parents express understanding. ASSESSMENT:? MOB and baby admitted following labor and delivery. MOB observed to be holding baby in loving way and expressing a connection to him. Parents were observed to have healthy and supportive relationship. Maternal grandma also a strong support for each of them. Parents have obtained all necessary baby supplies and have natural supports in place. MOB with mental health history including experiencing with her last delivery. MOB states that she feels more prepared on what to expect this time around and hopes to be better managed to handle her feelings. Much support and education provided. PLAN:? MOB and baby to be discharged when medically ready. ?No other services requested or indicated. Rigo Elizabeth, [employer] MEMBERSHIP SALES AGENT, LARGE ANIMAL HUSBANDRY TECHNICIAN
== END 2023-11-18 13:00 | disposition home or self-care (01) | DRG 806 ==
LOC: WPOUT 06:24 → WP 06:24
PROVIDERS: Admitting Provider Obstetrics & Gynecology; Visit Provider Advanced Practice Midwife
DX: O36.63X0 Maternal care for excessive fetal growth, third trimester, not applicable or unspecified (principal); Z37.0 Single live birth; Q22.1 Congenital pulmonary valve stenosis; F41.9 Anxiety disorder, unspecified; O99.344 Other mental disorders complicating childbirth; O77.0 Labor and delivery complicated by meconium in amniotic fluid; Z3A.39 39 weeks gestation of pregnancy; Z87.59 Personal history of other complications of pregnancy, childbirth and the puerperium; O99.893 Other specified diseases and conditions complicating puerperium
CPT/HCPCS: 59025; 59050; 84112; 85025; 86780; 86850; 86900; 86901; 99221; J7120; A4216; G0378; J2405